=== PATIENT | female | born 1950 | race African-American/Black ===

== ENCOUNTER 2024-04-16 03:08 | Inpatient (IN) | payer OTHER ==
[~2024-04-16] VITALS: Ht 160 cm; Wt 63.0 kg
[2024-04-16 03:13] VITALS: O2SAT 98
[2024-04-16] MEDS: MAGNESIUM/ALUMINUM HYDROXIDE/SIMETHICONE 30ML UDC PO STA (04:08)
[2024-04-16] MEDS: MORPHINE SULFATE 4 MG/ML INJ (FOR IV/IM USE) IV ONE (05:41)
[2024-04-16] MEDS ORDERED: SODIUM CHLORIDE 0.9% 1,000 ML IV ONE (05:45)
[2024-04-16] MEDS ORDERED: ONDANSETRON HCL 4MG/2ML INJ IV ONE (05:45)
[2024-04-16 06:20] LABS: BASOPHILS % 0.8 % (0.0-2.0); EOSINOPHILS % 3.5 % (0.0-5.0); HEMOGLOBIN. 10.6 g/dL (12.0-16.0); LYMPHOCYTES % 15.5 % (20.0-50.0); MEAN CORPUSCULAR HEMOGLOBIN 30.5 pg (28.0-32.0); MEAN CORPUSCULAR HGB CONC 32.1 g/dL (31.0-37.0); MEAN PLATELET VOLUME 12.5 fl (7.4-10.4); MONOCYTES % 8.1 % (2.0-8.0); NEUTROPHILS % 72.1 % (40.0-76.0); PLATELET 145 x1000/uL (130-400); RED BLOOD CELL COUNT 3.47 mill/uL (4.2-5.4); RED CELL DISTRIBUTION WIDTH 15.1 % (11.6-14.6); WHITE BLOOD COUNT 5.7 x1000/uL (4.5-11.0)
[2024-04-16 06:24] LABS: PROTHROMBIN TIME 10.7 sec (9.6-11.0)
[2024-04-16 06:27] LABS: CARBON DIOXIDE 19 mEq/L (21-32); CHLORIDE 115 mEq/L (98-107); POTASSIUM 4.3 mEq/L (3.5-5.1); SODIUM 141 mEq/L (136-145)
[2024-04-16 06:28] LABS: CALCIUM 8.7 mg/dL (8.7-10.4)
[2024-04-16 06:33] LABS: CREATININE 1.9 mg/dL (0.6-1.0); GLUCOSE 103 mg/dL (70-105); TROPONIN I HIGH SENSITIVITY 5 ng/L (3.0-34); UREA NITROGEN BLOOD 24 mg/dL (9-23)
[2024-04-16 06:35] LABS: ALANINE AMINOTRANSFERASE < 7 IU/L (10-49); ALBUMIN 4.1 g/dL (3.2-4.8); ASPARTATE AMINOTRANSFERASE 9 IU/L (<34); BILIRUBIN TOTAL 0.3 mg/dL (0.1-1.0); PROTEIN TOTAL 6.9 g/dL (6.0-8.3)
[2024-04-16 06:53] LABS: BILIRUBIN DIRECT < 0.1 mg/dL (<=3.0); ETHANOL BLOOD < 10 mg/dL (<10)
[2024-04-16] MEDS: LACTATED RINGERS 1,000 ML IV SCH (09:45)
[2024-04-16] MEDS ORDERED: ACETAMINOPHEN 325MG TABLET PO PRN ×2 (09:45)
[2024-04-16] MEDS ORDERED: CLONIDINE 0.1MG TABLET PO PRN (09:45)
[2024-04-16] MEDS ORDERED: ONDANSETRON HCL 4MG/2ML INJ IV PRN (09:45)
[2024-04-16] MEDS ORDERED: GUAIFENESIN 200MG/10ML SUGAR FREE UDC PO PRN (09:45)
[2024-04-16] MEDS ORDERED: IPRATROPIUM/ALBUTEROL 0.5-3(2.5)MG/3ML NEB NEB PRN (09:45)
[2024-04-16] MEDS ORDERED: NITROGLYCERIN 0.4MG TABLET SL SL PRN (09:45)
[2024-04-16] MEDS: METRONIDAZOLE 500 MG PREMIX 100 ML IV SCH (10:00)
[2024-04-16] MEDS ORDERED: MAGNESIUM/ALUMINUM HYDROXIDE/SIMETHICONE 30ML UDC PO PRN (10:00)
[2024-04-16] MEDS ORDERED: DOCUSATE SODIUM 100MG CAPSULE PO PRN (10:00)
[2024-04-16 10:28] LABS: IRON 50 ug/dL (50-170)
[2024-04-16 10:31] LABS: FOLIC ACID (FOLATE) SERUM 9.57 ng/mL (>5.38); T4 FREE 0.83 ng/dL (0.89-1.76); THYROID STIMULATING HORMONE 5.48 uIU/mL (0.55-4.78); TOTAL IRON BINDING CAPACITY 209 ug/dl (250-425)
[2024-04-16 10:34] LABS: VITAMIN B12 SERUM 430 pg/mL (211-911)
[2024-04-16 10:49] VITALS: BP 180/70; PULSE 80; RESP 20; TEMP 36.2512
[2024-04-16] MEDS: ENOXAPARIN 30MG/0.3ML SYR SUBCUT SCH (18:56)
[2024-04-16] MEDS: PANTOPRAZOLE SODIUM 40 MG/VIAL IV SCH (18:57)
[2024-04-16] MEDS: LEVOFLOXACIN 500MG PREMIX 100 ML IV SCH (18:57)
[2024-04-16 20:00] VITALS: BP 163/54; PULSE 79; RESP 17; TEMP 36.44736; O2SAT 97
[2024-04-16] MEDS ORDERED: ZOLPIDEM TARTRATE 5MG TABLET PO PRN (22:00)
[2024-04-17] VITALS: BP 137/50; PULSE 63; RESP 16; TEMP 36.22512; O2SAT 98
[2024-04-17 04:00] VITALS: BP 158/48; PULSE 64; RESP 16; TEMP 36.50292; O2SAT 99
[2024-04-17 08:00] VITALS: BP 147/50; PULSE 54; RESP 17; TEMP 36.50292; O2SAT 100
[2024-04-17] MEDS: LEVOFLOXACIN 250MG PREMIX 50 ML IV SCH (08:50)
[2024-04-17 10:35] LABS: CARBON DIOXIDE 19 mEq/L (21-32); CHLORIDE 115 mEq/L (98-107); POTASSIUM 4.3 mEq/L (3.5-5.1); SODIUM 143 mEq/L (136-145)
[2024-04-17 10:36] LABS: CALCIUM 8.7 mg/dL (8.7-10.4)
[2024-04-17 10:41] LABS: CREATININE 1.6 mg/dL (0.6-1.0); GLUCOSE 90 mg/dL (70-105); UREA NITROGEN BLOOD 15 mg/dL (9-23)
[2024-04-17 10:43] LABS: PHOSPHORUS 2.7 mg/dL (2.5-4.9)
[2024-04-17 12:00] VITALS: BP 140/60; PULSE 67; RESP 18; TEMP 35.5584; O2SAT 96
[2024-04-17 14:57] LABS: CLARITY URINE CLEAR (CLEAR); COLOR URINE YELLOW (YELLOW); GLUCOSE URINE NEGATIVE (NEGATIVE); KETONES URINE NEGATIVE (NEGATIVE); LEUKOCYTE ESTERASE URINE 1+ (NEGATIVE); NITRITE URINE NEGATIVE (NEGATIVE); OCCULT BLOOD URINE NEGATIVE (NEGATIVE); PROTEIN URINE 1+ (NEGATIVE); SPECIFIC GRAVITY URINE 1.012 (1.005-1.030); UROBILINOGEN URINE 0.2 E.U./dL (0.2-1.0)
[2024-04-17 15:05] LABS: *AMPHETAMINES SCREEN URINE NEGATIVE (NEGATIVE); *BENZODIAZEPINES SCREEN URINE NEGATIVE (NEGATIVE)
[2024-04-17 15:06] LABS: *BARBITURATES SCREEN URINE NEGATIVE (NEGATIVE); *COCAINE SCREEN URINE NEGATIVE (NEGATIVE); CANNABINOID URINE SCREEN NEGATIVE (NEGATIVE); ECSTASY MDMA SCREEN URINE NEGATIVE (NEGATIVE); METHADONE URINE SCREEN NEGATIVE (NEGATIVE); OPIATES URINE SCREEN PRESUMPTIVE POSITIVE (NEGATIVE); PHENCYCLIDINE URINE SCREEN NEGATIVE (NEGATIVE)
[2024-04-17 15:16] LABS: SQUAMOUS EPITHELIAL CELL URINE 1+ /lpf (RARE/1+)
[2024-04-17 15:17] LABS: BACTERIA URINE 1+; RBC URINE NONE SEEN /hpf (0-2)
[2024-04-17 16:00] VITALS: BP 94/58; PULSE 74; RESP 19; TEMP 36.3918; O2SAT 97
[2024-04-17 17:25] LABS: BASOPHILS % 0.7 % (0.0-2.0); EOSINOPHILS % 4.3 % (0.0-5.0); HEMOGLOBIN. 9.9 g/dL (12.0-16.0); LYMPHOCYTES % 18.1 % (20.0-50.0); MEAN CORPUSCULAR HEMOGLOBIN 30.3 pg (28.0-32.0); MEAN CORPUSCULAR VOLUME 97.8 fL (81.0-99.0); MEAN PLATELET VOLUME 12.7 fl (7.4-10.4); MONOCYTES % 12.4 % (2.0-8.0); NEUTROPHILS % 64.5 % (40.0-76.0); PLATELET 143 x1000/uL (130-400); RED BLOOD CELL COUNT 3.27 mill/uL (4.2-5.4); RED CELL DISTRIBUTION WIDTH 15.5 % (11.6-14.6); WHITE BLOOD COUNT 4.9 x1000/uL (4.5-11.0)
[2024-04-17 20:00] VITALS: BP 153/40; PULSE 54; RESP 19; TEMP 36.72516; O2SAT 95
[2024-04-20 13:10] LABS: SACCHAROMYCES CEREVISIAE IGG 30.6 Units (0.0-24.9); SACCHAROMYCES CEREVISIAE IGM <20.0 Units (0.0-24.9)
[2024-04-21 13:07] LABS: ATYPICAL pANCA <1:20 titer (Neg:<1:20)
== END 2024-04-17 22:51 | disposition short-term general hospital (02) | DRG 385 ==
LOC: ER 03:08 → 6EST 07:02 → EDBEDREQTM 07:30 → EDBEDREQ 07:30
PROVIDERS: ADMIT Internal Medicine; ATTEND Internal Medicine
DX: K50.90 Crohn's disease, unspecified, without complications (principal); N17.0 Acute kidney failure with tubular necrosis; N20.1 Calculus of ureter; R18.8 Other ascites; N18.9 Chronic kidney disease, unspecified; D25.9 Leiomyoma of uterus, unspecified; D63.8 Anemia in other chronic diseases classified elsewhere; J45.909 Unspecified asthma, uncomplicated
CPT/HCPCS: 36415; 74018; 74176; 76705; 76770; 80048; 80076; 80305; 80320; 81003; 82607; 82746; 83036; 83540; 83550; 83605; 83735; 84100; 84145; 84439; 84443; 84484; 85025; 85651; 86256; 86671; 93970; 99285; J1650; J1956; J2270; J2470; J3490; J7030; J7120; G0480